=== PATIENT | male | born 1985 | race Caucasian/White ===

== ENCOUNTER 2021-08-05 23:06 | Emergency (ER) | payer OTHER ==
[2021-08-06] MEDS ORDERED: Ketorolac 15 MG/ML SDV IM ONE (01:01)
[2021-08-06] MEDS ORDERED: Ketorolac 30 MG/ML SDV ONE (01:15)
[2021-08-06] MEDS ORDERED: Ketorolac 30 MG/ML SDV IM ONE (01:15)
== END 2021-08-06 01:26 | disposition home or self-care (01) ==
LOC: JD.ED 23:06
DX: S43.402A Unspecified sprain of left shoulder joint, initial encounter (principal); F17.210 Nicotine dependence, cigarettes, uncomplicated; X50.0XXA Overexertion from strenuous movement or load, initial encounter
CPT/HCPCS: 73030; 96372; 99283; J1885

== ENCOUNTER 2021-11-05 13:13 | Emergency (ER) | payer SELFPAY | END 2021-11-05 14:15 | disposition home or self-care (01) | LOC: JD.ED 13:13 | DX: H60.392 Other infective otitis externa, left ear (principal); F17.210 Nicotine dependence, cigarettes, uncomplicated | CPT/HCPCS: 99282 ==